=== PATIENT | female | born 1960 | race Caucasian/White ===

== ENCOUNTER 2021-07-19 14:48 | Emergency (ER) | payer MEDICARE, MEDICAID, SELFPAY ==
[2021-07-19 14:51] VITALS: BP 177/104; PULSE 84; RESP 16; TEMP 36.6; O2SAT 99; BMI 33.5
--- NOTE | 2021-07-19 14:53 | XR_ITS ---
WS: [id number] Right knee, 3 views, 07/19/2021 Clinical Data: pain Comparison: None. Findings: There is a vertical line between the tibial spines which may represent an undisplaced fracture. There is a faint line extending inferiorly and ending on the medial proximal tibia which could also repres ent a fracture. No definite displacement of the tibial plateaus is seen. The patella is intact. The distal right femu r is normal. The proximal right fibula is unremarkable. XR/XR knee RT 3V* [id number] Impression: Vertical fracture between the tibial spines which could extend to the medial pr oximal right tibia.
[2021-07-19] MEDS: ketorolac 60 mg/2 mL INJ IM (15:13)
[2021-07-19 15:15] VITALS: BP 153/82; PULSE 87; RESP 18; O2SAT 95
--- NOTE | 2021-07-19 15:18 | W.ED.FALL ---
HPI - Fall General: Chief Complaint: Fall Stated Complaint: R KNEE, L LEG PAIN, FALL Time Seen by Provider: 07/19/21 14:53 Source: patient Mode of arrival: EMS Limitations: no limitations History of Present Illness: 61-year-old female brought to the emergency room with complaint of right knee pain and swelling. She tripped and stumbled over a cinder block while she was painting a house and fell into some unfinished concrete she complaining of pain in her left tibia as well as severe pain in her right knee she has some bruising in the tibia at the midshaft anteriorly significant swelling on the right knee unable to bear weight on the right leg. There is no obvious deformity more significant joint effusion she denies any other injury did not land on outstretched hand she denies any neck or head injury. MD complaint: fall Onset (ago): minute(s) Fall from: standing Place fall occurred: work Loss of consciousness: None Prolonged down time: no Symptoms prior to fall: none Context: tripped/slipped Location of injury - extremities: Right: knee Severity: moderate Quality: sharp Associated symptoms-after fall: Denies abdominal pain, chest pain, confusion, difficulty walking or short of breath Review of Systems Const: Denies: fever(s), chills, body aches, change in appetite, fatigue or malaise ENMT: Denies: throat pain, ear or mastoid pain, nasal discharge or nasal congestion Card: Denies: chest pain Resp: Denies: dyspnea, productive cough or non-productive cough GI: Denies: abdominal pain : Denies: flank pain, difficulty voiding, dysuria, urinary frequency or urinary urgency Musc: Reports: joint pain (Right knee) Skin/Breast: Denies: rash or pruritus Neuro: Denies: difficulty walking or confusion Physical Exam Const: COMMON NORMALS: no acute distress GENERAL APPEARANCE: cooperative and comfortable ORIENTATION/CONSCIOUSNESS: Yes awake, Yes oriented to person, Yes oriented to place and Yes oriented to time HENMT: COMMON NORMALS: normocephalic and atraumatic HEAD & SCALP: normocephalic and atraumatic Neck/C-Spine: COMMON NORMALS: no JVD Resp: COMMON NORMALS: normal respiratory effort, No retractions, No use of accessory muscles and clear to auscultation bilaterally AUSCULTATION: clear to auscultation bilaterally Cardio: COMMON NORMALS: no JVD, regular rate, regular rhythm and No murmurs present (Cardio) RATE: regular rate RHYTHM: regular rhythm GI: COMMON NORMALS: Soft to palpation and No hepatosplenomegaly present AUSCULTATION: Yes normoactive bowel sounds PALPATION: Yes Soft to palpation, No Tenderness to palpation present (GI), No Guarding due to palpation present (GI) and Yes No hepatosplenomegaly present Extremity: COMMON NORMALS: capillary refill normal, no clubbing, cyanosis or edema, no calf tenderness and no pedal edema RIGHT LOWER EXTREMITY: Yes knee joint (Large joint effusion exquisitely tender even to the mild palpation no obvio) Neuro: SENSORIUM/ORIENTATION: Yes oriented to person, Yes oriented to place and Yes oriented to time Skin: COMMON NORMALS: no rashes or lesions noted GENERAL SKIN EXAM: no rashes or lesions noted Course Vital Signs: Vital signs: Vital Signs Temperature 97.9 F 07/19/21 16:50 Pulse Rate 81 07/19/21 16:50 Respiratory Rate 18 07/19/21 16:50 Blood Pressure 138/79 07/19/21 16:50 Pulse Oximetry 97 07/19/21 16:50 MDM - Fall Medical Decision Making Plain film shows tibial type plateau fracture. No displacement on the plain film. We will put her in a knee immobilizer. Discussed with her the importance of complete nonweightbearing on the affected leg elevate ice. Pain medications given discharge home Case management to arrange for follow-up with orthopedics. Medical Records I reviewed the patient's medical records. Lab Data I reviewed the patient's lab results. Radiology Impressions Knee X-Ray 07/19/21 14:53 Impression: Vertical fracture between the tibial spines which could extend to the medial proximal right tibia. Discharge Plan Discharge Patient Disposition: Home Clinical Impression: Fracture of tibial plateau Condition: Stable Prescriptions: New hydrocodone-acetaminophen 5-325 mg tablet 1 tab PO Q6H PRN (Reason: pain) Qty: 20 0RF No Action ropinirole 1 mg Tablet 1 mg PO TID 0RF oxybutynin chloride 10 mg Tablet Extended Release 24hr 10 mg PO DAILY 0RF ibuprofen 800 mg Tablet 800 mg PO Q8H PRN (Reason: Pain) 0RF omeprazole 40 mg Capsule,Delayed Release(Dr/Ec) 40 mg PO DAILY 0RF meloxicam 7.5 mg Tablet 7.5 mg PO BID 0RF fluoxetine 20 mg Tablet 20 mg PO DAILY 0RF gabapentin 300 mg Capsule 300 mg PO TID 0RF diclofenac sodium 50 mg Tablet,Delayed Release (Dr/Ec) 50 mg PO BID 0RF zonisamide 50 mg Capsule 50 mg PO BID 0RF Symbicort 80-4.5 mcg/actuation Hfa Aerosol Inhaler 2 puff INHALATION Q12H 0RF levocetirizine 5 mg Tablet 5 mg PO DAILY 0RF Vraylar 6 mg Capsule 6 mg PO DAILY 0RF Trelegy Ellipta 100-62.5-25 mcg Blister With Device 1 inh INHALATION DAILY 0RF Discharge Orders: Discharge ED (Routine); Ordered 07/19/21 Ordered By: Jay Guerrero Discharge Diet: Usual diet Discharge Activity: Limit activity as instructed Patient Instructions: Opioid Safety Activity Restrictions/Additional Instructions: Case management will make arrangements for her to follow-up with orthopedics nonweightbearing on the right leg. Coding Level of Care Code ED [employer] Techn[employer] for Tiffanie Kilgore Exam Comprehensive
[2021-07-19 16:50] VITALS: BP 138/79; PULSE 81; RESP 18; TEMP 36.6; O2SAT 97
--- NOTE | 2021-07-20 09:28 | DCPLANNER ---
Addendum entered by Lori North 07/21/21 09:52: Patient had a follow up appointment scheduled for 07.20.[address] Thakkar at ortho - patient did attend appointment. Original Note: presentation manager had message to schedule a follow up appointment for patient with ortho. presentation manager sent patients information to the front office staff at ortho. Patients information will be printed and reviewed. Clinic will call patient with appointment information.
== END 2021-07-19 16:54 | disposition home or self-care (01) ==
PROVIDERS: Emergency Provider Family Medicine; PCP Family Medicine
DX: S82.141A Displaced bicondylar fracture of right tibia, initial encounter for closed fracture (principal); W01.0XXA Fall on same level from slipping, tripping and stumbling without subsequent striking against object, initial encounter
CPT/HCPCS: 73562; 96372; 99283; J1885

== ENCOUNTER → 2021-07-20 13:19 | Outpatient (BNVA) | payer MEDICARE, MEDICAID, SELFPAY | PROVIDERS: PCP Family Medicine; Referring Provider Family Medicine; Visit Provider Specialist | DX: S82.141A Displaced bicondylar fracture of right tibia, initial encounter for closed fracture (principal); W01.0XXA Fall on same level from slipping, tripping and stumbling without subsequent striking against object, initial encounter; F17.210 Nicotine dependence, cigarettes, uncomplicated; Z46.89 Encounter for fitting and adjustment of other specified devices | CPT/HCPCS: 27532; 97760; 99203; L1832 ==

== ENCOUNTER 2021-07-20 16:04 | Outpatient (CLI) | payer MEDICARE, MEDICAID, SELFPAY | END 2021-07-20 16:05 | disposition home or self-care (01) | LOC: SPT 16:04 | PROVIDERS: PCP Family Medicine; Visit Provider Specialist | DX: Z46.89 Encounter for fitting and adjustment of other specified devices (principal); S82.141D Displaced bicondylar fracture of right tibia, subsequent encounter for closed fracture with routine healing; X58.XXXD Exposure to other specified factors, subsequent encounter | CPT/HCPCS: 27532; 97760; 99203; L1832 ==